=== PATIENT | male | born 1995 | race Hispanic/Latino ===

== ENCOUNTER 2024-08-06 09:42 | Emergency (ER) | payer OTHER, BC ==
[~2024-08-06] VITALS: Ht 180.3 cm; Wt 99.7 kg
[2024-08-06 14:40] VITALS: BP 138/95
== END 2024-08-06 14:46 | disposition home or self-care (01) ==
LOC: ED 09:42
DX: S93.601A Unspecified sprain of right foot, initial encounter (principal); X50.1XXA Overexertion from prolonged static or awkward postures, initial encounter
CPT/HCPCS: 73630; 99283